=== PATIENT | male | born 1965 | race Hispanic/Latino ===

== ENCOUNTER 2020-02-21 22:02 | Emergency (ER) | payer SELFPAY ==
[~2020-02-21] VITALS: Ht 180.3 cm; Wt 108.9 kg
[2020-02-21] MEDS ORDERED: SODIUM BICARBONATE 8.4% SYRING 50 ML ONE (23:23)
[2020-02-21] MEDS ORDERED: LIDOCAINE HCL 1% LOCAL INJ 20 ML VIAL ONE (23:23)
[2020-02-22] MEDS ORDERED: HYDROCODONE/APAP 7.5MG-325MG 1 EA TAB PO PRN
[2020-02-22] MEDS ORDERED: AUGMENTIN 875-1 EACH PO (00:16)
[2020-02-22] MEDS ORDERED: ULTRAM50 MG PO (00:16)
== END 2020-02-22 00:54 | disposition home or self-care (01) ==
LOC: ER 22:38
DX: S61.451A Open bite of right hand, initial encounter (principal); W54.0XXA Bitten by dog, initial encounter; Y92.008 Other place in unspecified non-institutional (private) residence as the place of occurrence of the external cause
CPT/HCPCS: 12002; 73110; 99283; J2001